=== PATIENT | female | born 1945 | race Caucasian/White ===

== ENCOUNTER 2021-01-03 19:55 | Emergency (ER) | payer MEDICARE ==
[~2021-01-03] VITALS: Ht 165.1 cm; Wt 78.2 kg
--- NOTE | 2021-01-03 20:47 | PHYS DOC ---
Past History Past Medical History: COPD, Other Additional Past Medical Histor: 3 vessel bybass Past Surgical History: Other Additional Past Surgical Histo: left hip fx, left knee fx Alcohol Use: None General Adult EDM: Chief Complaint: MECHANICAL FALL HPI: HPI: ".. I got diarrhea... and I was in the garage.. I was rushing back in to the house and .. I tripped and fell..."... hips and lower back are sore..." Patient is a 75 year old female who presents with above hx and complaints of recent episodes of diarrhea. Patient denies any intake bad food. No recent travel. No specific ill contacts. Patient has past medical history of COPD, hypertension, diabetes, arthritis, and gait disorder. Patient normally walks with a walker. Patient states she just tripped and fell. No recent history of antibiotic usage. No history of specific ill contacts. No history immunosuppression. Patient had diarrhea for last couple days. Patient normally follows with Dr. Preciado. Review of Systems: Review of Systems: Constitutional: Denies fever or chills Eyes: Denies change in visual acuity HENT: Denies nasal congestion or sore throat Respiratory: Denies cough or shortness of breath Cardiovascular: Denies chest pain or edema GI: Denies abdominal pain, nausea, vomiting, bloody stools. Complains of diarrhea : Denies dysuria Musculoskeletal: Complains of Heparin lower back pain Integument: Denies rash Neurologic: Denies headache, focal weakness or sensory changes Endocrine: Denies polyuria or polydipsia Lymphatic: Denies swollen glands Psychiatric: Denies depression or anxiety Family History: Family History: Noncontributory Current Medications: Current Meds: See nursing for home meds Allergies: Allergies: Allergies Coded Allergies Type Severity Reaction Last Updated Verified levofloxacin Allergy Unknown 01/03/21 Yes morphine Allergy Unknown 01/03/21 Yes Physical Exam: PE: Constitutional: Mild distress, non-toxic appearance. [] HENT: Normocephalic, atraumatic, bilateral external ears normal, oropharynx moist, no oral exudates, nose normal. [] Eyes: PERRLA, EOMI, conjunctiva normal, no discharge. [] Neck: Normal range of motion, no tenderness, supple, no stridor. [] Cardiovascular:Heart rate regular rhythm, no murmur [] Lungs & Thorax: Bilateral breath sounds clear to auscultation [] Abdomen: Bowel sounds hyperactive, soft, no tenderness, no masses, no pulsatile masses. Obese. Has had a diarrhea Skin: Warm, dry, no erythema, no rash. [] Back: Low back pain tenderness, no CVA tenderness. [] Extremities: No tenderness, no cyanosis, no clubbing, ROM intact, no edema. Bilateral hip tenderness. Arthritic changes. Neurologic: Alert and oriented X 3, normal motor function, normal sensory function, no focal deficits noted. [] Psychologic: Affect anxious, judgement normal, mood normal. [] Current Patient Data: Vital Signs: Vital Signs Date Time Temp Pulse Resp B/P (MAP) Pulse Ox O2 Delivery O2 Flow Rate FiO2 01/03/21 19:55 98.1 80 18 93/61 (72) 92 Room Air EKG: EKG: [] Radiology/Procedures: Radiology/Procedures: [][address] [address] IMAGING REPORT Signed PATIENT: BRAN SIMON ACCOUNT: [id number] : 1945 LOCATION: ER AGE: 75 SEX: F EXAM STATUS: REG ER ORD. PHYSICIAN: SADIA HENDERSON MD REASON: Fall, weakness, abdomen distention, pain PROCEDURE: CT ABDOMEN PELVIS WO CONTRAST Exam: CT of abdomen and pelvis without contrast INDICATION: Fall, weakness, abdominal distention, pain TECHNIQUE: Sequential axial images through the abdomen and pelvis obtained without IV contrast. Sagittal and coronal reformatted images were reconstructed from the axial data and reviewed. Comparisons: None FINDINGS: Heart size is normal. No pericardial effusion. Strandy opacities at dependent portion lungs likely representing atelectasis. Evaluation of the solid organs is limited secondary to noncontrast technique. Liver, spleen, and adrenals are unremarkable. Gallbladder is absent. Fat stranding is seen surrounding the pancreatic tail. No peripancreatic fluid collection. No perinephric inflammation or hydronephrosis. No renal or ureteral calculi are identified. Bladder is distended and appears thin-walled. Uterus is absent. No abnormal adnexal mass. Postoperative changes noted at the stomach. Diverticulosis is noted at the sigmoid colon without evidence of acute diverticulitis. Remainder large and small bowel are unremarkable. Appendix is is not identified. No free intra- abdominal air or fluid. No obstruction. Abdominal aorta has a normal course and caliber. No enlarged intra-abdominal lymph nodes are identified. No suspicious osseous lesions or acute fractures. IMPRESSION: 1. Mild stranding surrounding the pancreatic tail. Correlate with lipase for acute pancreatitis. 2. Postoperative changes at the stomach, which is adjacent to this area of inflammation. Superimposed infectious or inflammatory process is difficult to exclude. Exposure: One or more of the following in the visualized dose reduction techniques were utilized for this examination: 1. Automated exposure control 2. Adjustment of the MA and/or KV according to patient size 3. Use of iterative of reconstructive technique Electronically signed by: Bhumi Medrano MD (01/03/2021 9:27 PM) [facility] DICTATED AND SIGNED BY: BHUMI MEDRANO MD DATE: 01/03/212121 CC: SADIA HENDERSON MD; PCP,UNKNOWN ~MTH0 0 Heart Score: C/O Chest Pain: N/A Risk Factors: Risk Factors: DM, Current or recent (<one month) smoker, HTN, HLP, family history of CAD, obesity. Risk Scores: Score 0 - 3: 2.5% MACE over next 6 weeks - Discharge Home Score 4 - 6: 20.3% MACE over next 6 weeks - Admit for Clinical Observation Score 7 - 10: 72.7% MACE over next 6 weeks - Early Invasive Strategies Course & Med Decision Making: Course & Med Decision Making Pertinent Labs and Imaging studies reviewed. (See chart for details) Patient Tylenol and ibuprofen for discomfort. May take Vicoprofen up to 4 times a day for marked pain. Consider taking Pepto-Bismol for diarrhea. Follow-up primary care. Push fluids. Ice packs as needed. Follow-up stool cultures. Recommend patient be on a clear fluid diet for the next 2 days. No solids. No milk products. Allow bowel rest. Return if any concerns. Impression: 1. Fall 2. Contusions 3. Diarrhea 4. Mild Anemia Hgb 11.9 [] Dragabby Disclaimer: Dragabby Disclaimer: This electronic medical record was generated, in whole or in part, using a voice recognition dictation system. Departure Departure: Scripts Hydrocodone/Ibuprofen (HYDROCODONE-IBUPROFEN 7.5-200 ) 1 Each Tablet 1 TAB PO PRN Q6HRS PRN for PAIN, #30 TAB 0 Refills Prov: SADIA HENDERSON MD 01/03/21 Belén Disclaimer This chart was dictated in whole or in part using Voice Recognition software in a busy, high-work load, and often noisy Emergency Department environment. It may contain unintended and wholly unrecognized errors or omissions. SADIA HENDERSON MD Jan 03, 2021 20:47
[2021-01-03] MEDS ORDERED: oxyCODONE/APAP 5/325 1 TAB TABLET PO ONE (21:00)
[2021-01-03] MEDS ORDERED: IV RINGERS SOLUTION,LACTATED 1,000 ML IV ONE (21:00)
[2021-01-03 21:17] LABS: HEMATOCRIT 37.8 % (36.0-47.0); HEMOGLOBIN 11.9 g/dL (12.0-15.5); RED BLOOD COUNT 4.3 x10^6/uL (3.50-5.40); RED CELL DISTRIBUTION WIDTH 16.9 % (11.5-14.5); WHITE BLOOD COUNT 9.6 x10^3/uL (4.0-11.0)
[2021-01-03 21:25] LABS: CALCIUM 8.4 mg/dL (8.5-10.1); CREATININE 0.9 mg/dL (0.6-1.0)
--- NOTE | 2021-01-03 21:29 | RAD ---
Exam: CT of abdomen and pelvis without contrast INDICATION: Fall, weakness, abdominal distention, pain TECHNIQUE: Sequential axial images through the abdomen and pelvis obtained without IV contrast. Sagit sharan and coronal reformatted images were reconstructed from the axial data and reviewed. Comparisons: None FINDINGS: Heart size is normal. No pericardial effusion. Strandy opacities at dependent portion lungs likely re presenting atelectasis. Evaluation of the solid organs is limited secondary to noncontrast technique. Liver, spleen, and adrenals are unremarkable. Gallbladder is absent. Fat stranding is seen surrounding the pancreatic tail. No peripancreatic fluid collection. No perinephric inflammation or hydronephrosis. No renal or ureteral calculi are identified. Bladder is distended and appears thin-walled. Uterus is absent. No abnormal adnexal mass. Postoperative changes noted at the stomach. Diverticulosis is noted at the sigmoid colon without evid ence of acute diverticulitis. Remainder large and small bowel are unremarkable. Appendix is is not id entified. No free intra-abdominal air or fluid. No obstruction. Abdominal aorta has a normal course and caliber. No enlarged intra-abdominal lymph nodes are identified. No suspicious osseous lesions or acute fractures. IMPRESSION: 1. Mild stranding surrounding the pancreatic tail. Correlate with lipase for acute pancreatitis. 2. Postoperative changes at the stomach, which is adjacent to this area of inflammation. Superimpose d infectious or inflammatory process is difficult to exclude. Exposure: One or more of the following in the visualized dose reduction techniques were utilized for this examination: 1. Automated exposure control 2. Adjustment of the MA and/or KV according to patient size 3. Use of iterative of reconstructive technique Electronically signed by: Bhumi Scott MD (01/03/2021 9:27 PM) [facility]
[2021-01-03 22:19] LABS: AMYLASE 35 U/L (25-115); LIPASE 41 U/L (73-393)
[2021-01-03] MEDS ORDERED: HYDR-1179 PO (23:11)
[2021-01-03 23:12] LABS: FECAL OB PT NEGATIVE (NEG)
[2021-01-03 23:14] VITALS: BP 110/59
== END 2021-01-03 23:50 | disposition home or self-care (01) ==
LOC: ER 19:55
DX: S30.0XXA Contusion of lower back and pelvis, initial encounter (principal); R19.7 Diarrhea, unspecified; J44.9 Chronic obstructive pulmonary disease, unspecified; Z88.1 Allergy status to other antibiotic agents; Z88.5 Allergy status to narcotic agent; W01.0XXA Fall on same level from slipping, tripping and stumbling without subsequent striking against object, initial encounter; Y93.89 Activity, other specified; Y92.89 Other specified places as the place of occurrence of the external cause; Y99.8 Other external cause status
CPT/HCPCS: 36415; 74176; 80048; 82150; 82274; 83690; 85027; 87493; 96360; 96361; 99284; J7120

== ENCOUNTER 2021-06-18 16:21 | Inpatient (IN) | payer MEDICARE ==
[~2021-06-18] VITALS: Ht 162.6 cm; Wt 73.5 kg
[~2021-06-18 16:21] MED LIST: HYDR-1179 PO
[2021-06-18] MEDS ORDERED: IOHEXOL 300 MG/ML 75 ML VIAL. IV ONE (17:00)
--- NOTE | 2021-06-18 17:00 | EKG ---
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
--- NOTE | 2021-06-18 17:02 | PHYS DOC ---
Past History Past Medical History: Anemia, COPD, Diabetes, GERD, High Cholesterol, Other Additional Past Medical Histor: 3 vessel bypass, restless leg syndrome, (CARROLL EMERSON DO) Past Surgical History: Other Additional Past Surgical Histo: left hip fx, left knee fx (CARROLL EMERSON DO) Alcohol Use: None (CARROLL EMERSON DO) General Adult EDM: Chief Complaint: CHEST PAIN HPI: HPI: 76-year-old female presents with 2-day history of chest pain and abdominal pain. She states that she feels like she is having intermittent chest cramping se nsation of moderate intensity. Her left chest is tender to palpation. She also complains of generalized pain in her abdomen. She has not wanted to eat or drink for the last few days. Her son who accompanies her states that she seems much more tired than usual. She has been taking her medications as prescribed. She does have a history of gastric ulcer verified by EGD. Her GI doctor has her on treatments and her most recent EGD showed improvement. Patient denies any bleeding. Denies fever or chills. (CARROLL EMERSON DO) Review of Systems: Review of Systems: Constitutional: Denies fever or chills Eyes: Denies change in visual acuity HENT: Denies nasal congestion or sore throat Respiratory: Denies cough or shortness of breath Cardiovascular: Chest pain GI: Generalized abdominal pain, nausea. Denies vomiting, bloody stools or diarrhea : Denies dysuria Musculoskeletal: Denies back pain or joint pain Integument: Denies rash Neurologic: Denies headache, focal weakness or sensory changes Endocrine: Denies polyuria or polydipsia Lymphatic: Denies swollen glands Psychiatric: Denies depression or anxiety (CARROLL EMERSON DO) Allergies: Allergies: Allergies Coded Allergies Type Severity Reaction Last Updated Verified levofloxacin Allergy Unknown 01/03/21 Yes morphine Allergy Unknown 01/03/21 Yes (CARROLL EMERSON DO) Physical Exam: PE: Constitutional: Well developed, well nourished, no acute distress, non-toxic appearance. [] HENT: Normocephalic, atraumatic, bilateral external ears normal, oropharynx moist, no oral exudates, nose normal. [] Eyes: PERRLA, EOMI, conjunctiva normal, no discharge. [] Neck: Normal range of motion, no tenderness, supple, no stridor. [] Cardiovascular:Heart rate regular rhythm, no murmur [] Lungs & Thorax: Bilateral breath sounds clear to auscultation [] Abdomen: Bowel sounds normal, soft, no tenderness, no masses, no pulsatile masses. [] Skin: Warm, dry, no erythema, no rash. [] Back: No tenderness, no CVA tenderness. [] Extremities: No tenderness, no cyanosis, no clubbing, ROM intact, no edema. [] Neurologic: Alert and oriented X 3, normal motor function, normal sensory function, no focal deficits noted. [] Psychologic: Affect normal, judgement normal, mood normal. [] (CARROLL EMERSON DO) Current Patient Data: Labs: Laboratory Tests Test 06/18/21 17:10 06/18/21 19:07 White Blood Count 10.8 x10^3/uL Red Blood Count 5.30 x10^6/uL Hemoglobin 15.9 g/dL Hematocrit 48.8 % Mean Corpuscular Volume 92 fL Mean Corpuscular Hemoglobin 30 pg Mean Corpuscular Hemoglobin Concent 33 g/dL Red Cell Distribution Width 17.5 % Platelet Count 174 x10^3/uL Neutrophils (%) (Auto) 72 % Lymphocytes (%) (Auto) 18 % Monocytes (%) (Auto) 9 % Eosinophils (%) (Auto) 1 % Basophils (%) (Auto) 1 % Neutrophils # (Auto) 7.7 x10^3uL Lymphocytes # (Auto) 1.9 x10^3/uL Monocytes # (Auto) 0.9 x10^3/uL Eosinophils # (Auto) 0.1 x10^3/uL Basophils # (Auto) 0.1 x10^3/uL Sodium Level 135 mmol/L Potassium Level 2.8 mmol/L Chloride Level 97 mmol/L Carbon Dioxide Level 31 mmol/L Anion Gap 7 Blood Urea Nitrogen 18 mg/dL Creatinine 0.5 mg/dL Estimated GFR (Cockcroft-Gault) 120.0 BUN/Creatinine Ratio 36 Glucose Level 117 mg/dL Calcium Level 9.4 mg/dL Total Bilirubin 0.8 mg/dL Aspartate Amino Transf (AST/SGOT) 15 U/L Alanine Aminotransferase (ALT/SGPT) 18 U/L Alkaline Phosphatase 102 U/L Troponin I Quantitative < 0.017 ng/mL CP-Ehh-O-Type Natriuretic Peptide 756 pg/mL Total Protein 7.5 g/dL Albumin 3.4 g/dL Albumin/Globulin Ratio 0.8 Lipase 31 U/L Urine Collection Type Unknown Urine Color Yellow Urine Clarity Clear Urine pH 7.0 Urine Specific [place] 1.010 Urine Protein Neg Urine Glucose (UA) Neg mg/dL Urine Ketones (Stick) Neg mg/dL Urine Blood Trace Urine Nitrite Neg Urine Bilirubin Neg Urine Urobilinogen Dipstick 1.0 mg/dL Urine Leukocyte Esterase Neg Urine RBC 1-2 /HPF Urine WBC 1-4 /HPF Urine Squamous Epithelial Cells Occ /LPF Urine Bacteria 0 /HPF Current Medications Medications (Trade) Dose Ordered Sig/Yane Route PRN Reason Start Time Stop Time Status Last Admin Dose Admin Iohexol (Omnipaque 300 Mg/ml) 75 ml 1X ONCE IV 06/18/21 17:00 06/18/21 17:13 DC 06/18/21 19:29 Potassium Chloride (Klor-Con) 40 meq 1X ONCE PO 06/18/21 19:30 06/18/21 19:38 DC 06/18/21 21:25 (YOANNA VALENCIA MD) EKG: EKG: Sinus rhythm, rate 86, leftward axis, no ST elevation or depression. [] (CARROLL EMERSON DO) Radiology/Procedures: Radiology/Procedures: [] Impressions: Site ID: [id number] EXAMINATION: XR CHEST 1V. HISTORY: 76 years Female Reason: CHEST ORLIN, COUGH COMPARISON: None. Findings: The heart size is enlarged. There is a interstitial thickening which could relate to vascular congestion. No focal airspace consolidation. The sternotomy wires and evidence of the cardiac valve replacement is seen. There is no effusion or pneumothorax. The mediastinum and neal appear unremarkable. Minimally displaced the lateral the left third and fourth the rib fractures are noted probably acute or subacute. Impression: 1. Cardiomegaly with interstitial thickening could relate to vascular congestion. 2.. Minimally displaced lateral left third and fourth rib fractures, probably acute to subacute. Electronically signed by: Darrian Ash MD (06/18/2021 5:23 PM) [id number] DICTATED AND SIGNED BY: DARRIAN ASH MD DATE: 06/18/21 1720 CC: CARROLL EMERSON DO; PAUL TAVAREZ MD ~MTH0 0 (CARROLL EMERSNO DO) Radiology/Procedures: PATIENT: BRAN SIMON ACCOUNT: [id number] : 1945 LOCATION: ER AGE: 76 SEX: F EXAM STATUS: REG ER ORD. PHYSICIAN: CARROLL EMERSON DO REASON: upper abdominal pain, OMNI 300, 75ml PROCEDURE: CT ABD PELV W/ IV CONTRST ONLY Examination: CT of the abdomen pelvis with IV contrast HISTORY: History of upper abdominal pain COMPARISON: 01/03/2021 TECHNIQUE: Axial CT images of the abdomen pelvis were performed with IV contrast. Coronal and sagittal reformats are performed Exposure: One or more of the following individualized dose reduction techniques were utilized for this examination: 1. Automated exposure control 2. Adjustment of the mA and/or kV according to patient size 3. Use of iterative reconstruction technique. FINDINGS: Minimal bibasilar lung atelectasis. No evidence of free air identified in the abdomen. The visualized liver, adrenals grossly appears unremarkable. Few calcified granulomas identified in the spleen. Surgical changes identified in the stomach. Mild enhancement of the distal stomach wall could be mild gastritis. Mild prominent intrahepatic bile ducts and common bile duct likely postcholecystectomy changes. The visualized pancreas grossly appears unremarkable. The small bowel is nondilated. Feces and gas noted in the colon. There is a bladder is mildly distended. The bilateral kidneys enhance symmetrically. Cystic structure identified in the left kidney with the largest measuring 2 cm likely cyst. Moderate aortic atherosclerosis. Mild aneurysmal change infrarenal abdominal aorta. Left hip hardware identified. Moderate degenerative changes thoracolumbar spine. IMPRESSION: 1. Mild enhancement of the distal stomach wall could be mild gastritis. 2. Mild aneurysmal change infrarenal abdominal aorta. Electronically signed by: Sourav Chacko MD (06/18/2021 7:40 PM) [id number] (YOANNA VALENCIA MD) Heart Score: C/O Chest Pain: Yes HEART Score for Chest Pain: HEART Score for Chest Pain Response (Comments) Value History Slighlty/Non-Suspicious 0 ECG Nonspecific Repolarizatio 1 Age > 65 2 Risk Factors 1 or 2 Risk Factors 1 Total 4 Risk Factors: Risk Factors: DM, Current or recent (<one month) smoker, HTN, HLP, family history of CAD, obesity. Risk Scores: Score 0 - 3: 2.5% MACE over next 6 weeks - Discharge Home Score 4 - 6: 20.3% MACE over next 6 weeks - Admit for Clinical Observation Score 7 - 10: 72.7% MACE over next 6 weeks - Early Invasive Strategies (CARROLL EMERSON DO) Course & Med Decision Making: Course & Med Decision Making Pertinent Labs and Imaging studies reviewed. (See chart for details) The patient's chest x-ray shows cardiomegaly, vascular congestion and fractures of the third and fourth ribs on the left. See official read for details. EKG shows a prolonged [place], but no acute ST elevations. Labs are pending. I am signing the patient out to repack room worker 1800. [] (CARROLL EMERSON DO) Course & Med Decision Making Patient was signed out to me at 1800 p.m. pending laboratory studies and CT scan. She had presented with complaint of chest pain with previous history of fall. She also felt malaise and increasingly fatigued. Laboratory investigation revealed significantly low potassium of 2.8. She was given potassium chloride [address] scan of the abdomen and pelvis did not reveal any significant acute abnormalities. X-ray had revealed mild cardiomegaly with interstitial thickening possible mild vascular congestion and left third and fourth rib fractures. Patient does have history of heart failure but does not feel like she is fluid overloaded. She has no leg edema or significant shortness of breath. Her troponin is negative. An EKG done prior to my arrival did not show any acute ischemia. Because of pain management as well as significant hypokalemia, patient will be admitted to the hospital. I spoke with Dr. Sanders, hospitalist will admit patient for further care. I have also spoken with family member and the patient and patient is agreeable with the plan of care. Final impression 1. Acute hypokalemia 2. Left rib fractures 3. Chest pain Disposition: Admit to hospital telemetry. (YOANNA VALENCIA MD) Belén Disclaimer: Belén Disclaimer: This electronic medical record was generated, in whole or in part, using a voice recognition dictation system. (CARROLL EMERSON DO) Departure Departure: Impression: Primary Impression: Left rib fracture Qualified Codes: S22.42XA - Multiple fractures of ribs, left side, initial encounter for closed fracture Referrals: PAUL TAVAREZ MD (PCP) CARROLL EMERSON DO Jun 18, 2021 17:02 YOANNA VALENCIA MD Jun 18, 2021 21:35
--- NOTE | 2021-06-18 17:26 | RAD ---
Site ID: [id number] EXAMINATION: XR CHEST 1V. HISTORY: 76 years Female Reason: CHEST ORLIN, COUGH COMPARISON: None. Findings: The heart size is enlarged. There is a interstitial thickening which could relate to vascul ar congestion. No focal airspace consolidation. The sternotomy wires and evidence of the cardiac valv e replacement is seen. There is no effusion or pneumothorax. The mediastinum and neal appear unremarkable. Minimally displaced the lateral the left third and four th the rib fractures are noted probably acute or subacute. Impression: 1. Cardiomegaly with interstitial thickening could relate to vascular congestion. 2.. Minimally displaced lateral left third and fourth rib fractures, probably acute to subacute. Electronically signed by: Lupillo Ash MD (06/18/2021 5:23 PM) [id number]
[2021-06-18 18:28] LABS: BASO # 0.1 x10^3/uL (0.0-0.2); BASO % 1 % (0-3); EOS # 0.1 x10^3/uL (0.0-0.7); EOS % 1 % (0-3); HEMATOCRIT 48.8 % (36.0-47.0); HEMOGLOBIN 15.9 g/dL (12.0-15.5); LYMPH # 1.9 x10^3/uL (1.0-4.8); LYMPH % 18 % (24-48); MEAN CORPUSCULAR HEMOGLOBIN 30 pg (25-35); MEAN CORPUSCULAR HGB CONC 33 g/dL (31-37); MEAN CORPUSCULAR VOLUME 92 fL (79-100); MONO # 0.9 x10^3/uL (0.0-1.1); MONO % 9 % (0-9); NEUT # 7.7 x10^3uL (1.8-7.7); NEUT % 72 % (31-73); PLATELET COUNT 174 x10^3/uL (140-400); RED CELL DISTRIBUTION WIDTH 17.5 % (11.5-14.5); WHITE BLOOD COUNT 10.8 x10^3/uL (4.0-11.0)
[2021-06-18 18:40] LABS: ALBUMIN 3.4 g/dL (3.4-5.0); ALBUMIN/GLOBULIN RATIO 0.8 (1.0-1.7); CALCIUM 9.4 mg/dL (8.5-10.1); CREATININE 0.5 mg/dL (0.6-1.0); TOTAL BILIRUBIN 0.8 mg/dL (0.2-1.0); TOTAL PROTEIN 7.5 g/dL (6.4-8.2)
[2021-06-18 18:58] LABS: POTASSIUM 2.8 mmol/L (3.5-5.1)
[2021-06-18] MEDS ORDERED: POTASSIUM CHLORIDE 20 MEQ TABLET.ER. PO ONE (19:30)
--- NOTE | 2021-06-18 19:43 | RAD ---
Examination: CT of the abdomen pelvis with IV contrast HISTORY: History of upper abdominal pain COMPARISON: 01/03/2021 TECHNIQUE: Axial CT images of the abdomen pelvis were performed with IV contrast. Coronal and sagitta l reformats are performed Exposure: One or more of the following individualized dose reduction techniques were utilized for thi s examination: 1. Automated exposure control 2. Adjustment of the mA and/or kV according to patient size 3. Use of iterative reconstruction technique. FINDINGS: Minimal bibasilar lung atelectasis. No evidence of free air identified in the abdomen. The visualized liver, adrenals grossly appears unremarkable. Few calcified granulomas identified in the spleen. Surgical changes identified in the stomach. Mild enhancement of the distal stomach wall could be mild gastritis. Mild prominent intrahepatic bile ducts and common bile duct likely postcholecystectomy ch anges. The visualized pancreas grossly appears unremarkable. The small bowel is nondilated. Feces and gas noted in the colon. There is a bladder is mildly distended. The bilateral kidneys enhance symmetrically. Cystic structure identified in the left kidney with the largest measuring 2 cm likely cyst. Moderate aortic atherosclerosis. Mild aneurysmal change infrarenal abdominal aorta. Left hip hardware identified. Moderate degenerativ e changes thoracolumbar spine. IMPRESSION: 1. Mild enhancement of the distal stomach wall could be mild gastritis. 2. Mild aneurysmal change infrarenal abdominal aorta. Electronically signed by: Sourav Chacko MD (06/18/2021 7:40 PM) [id number]
[2021-06-18 19:59] LABS: BILIRUBIN,URINE NEG (NEG); CLARITY,URINE CLEAR; COLOR,URINE YELLOW; GLUCOSE,URINE NEG (NEG)
[2021-06-18 20:00] LABS: BACTERIA,URINE 0 /HPF (0-FEW); NITRITE,URINE NEG (NEG); SQUAMOUS EPITHELIAL CELL,UR OCC /LPF
[2021-06-18 23:28] VITALS: BP 128/89
--- NOTE | 2021-06-18 23:30 | NUR ---
The patient, BRAN SIMON, 76 y/o, F admitted by PAUL VILLAR MD, was given written information regarding hospital policies, unit procedures and contact persons. Valuables were checked and vitals obtained. Pt is A&OX4 able to express her own concerns. Pt can ambulate with walker to toilet. Chronic use of 02. Pt wears 3L NC at home and currently at hospital. Pt is currently resting in bed. Will continue to monitor.
[2021-06-19 06:00] VITALS: BP 138/83
[2021-06-19 06:57] LABS: CALCIUM 9.6 mg/dL (8.5-10.1); CREATININE 0.5 mg/dL (0.6-1.0); POTASSIUM 3.5 mmol/L (3.5-5.1)
[2021-06-19] MEDS ORDERED: OMEP20CA16 PO (09:19)
[2021-06-19] MEDS ORDERED: AMIT25TA PO (09:25)
[2021-06-19] MEDS ORDERED: FURO40TA4 PO (09:26)
[2021-06-19] MEDS ORDERED: FERR325T14 PO (09:30)
--- NOTE | 2021-06-19 09:56 | HP ---
ADMIT DATE: 06/19/2021 ATTENDING PHYSICIAN: Dr. Sanders. CHIEF COMPLAINT: Left-sided chest pain. HISTORY OF PRESENT ILLNESS: The patient is a 76-year-old female admitted through the ED with a 2-day history of chest and abdominal pain. She has some cramping. She had fallen several days ago. She does not remember how that happened. She stated she did not lose consciousness. She has multiple other medical issues. She had a workup in the ED, it was not coronary. Her enzymes were negative. EKG and chest x-ray were nondiagnostic. She did, however, have evidence of 2 acute fracture of the left third and fourth lateral ribs. There is no displacement. There is no pneumothorax. It hurts when she takes a deep breath. She is splinting as a result became hypoxemic, supplemental oxygen was added. She is admitted then with acute chest pain secondary to fall. She has osteoporosis. She had a recent fall, which correlates the side of the pain. PAST MEDICAL HISTORY: Significant for COPD. She continues to smoke. She has underlying depression with anxiety. She has anemia of chronic disease, gastroesophageal reflux disease, hyperlipidemia, coronary artery disease with 3-vessel bypass, exact details are sketchy whether she has had followup. She also had restless leg syndrome. PAST SURGICAL HISTORY: Includes surgery on the left hip fracture, left knee fracture, hysterectomy, and appendectomy. Exact diagnosis is unclear. ALLERGIES: SHE HAS ALLERGIES TO HYDROMORPHONE, LEVAQUIN AND MORPHINE. CURRENT MEDICATIONS: Include hydrocodone, ibuprofen. I do not have any other prescription meds. She has recently moved here from [place], [place] to be closer to her son. She does not have a local primary care physician. SOCIAL HISTORY: She is a smoker. She does not use any alcohol. FAMILY HISTORY: Mom at age 65 of heart disease. Father at age 70, also of heart disease. REVIEW OF SYSTEMS: Significant for generalized weakness and debilitation, dyspnea with minimal exertion. No palpitations. No COVID exposure. All other systems were reviewed and turned to be negative. PHYSICAL EXAMINATION: GENERAL: When I saw her, this is a female who was fairly alert. She looks older than her stated age. VITAL SIGNS: Initial vital signs showed a blood pressure of 138/83, pulse is 80 and regular. She was afebrile, oxygen saturation 96% on 3 liters by nasal cannula. HEENT: Head is without trauma. Pupils are reactive. Sclerae nonicteric. Oropharynx clear. NECK: Supple. No stridor. LUNGS: Shallow respirations, due to splinting. CARDIOVASCULAR: Showed regular heart tones. No gallops. ABDOMEN: Obese, protuberant. No rebound tenderness. No masses. EXTREMITIES: Without edema. NEUROLOGIC: Finally, focally intact. Speech is fluent. 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 PERTINENT LABORATORY STUDIES: Admission hemoglobin is 15.9 g/dL with a white count of 10,800. Electrolytes within normal range. Creatinine 0.5 mg percent. The first 3 sets of cardiac enzymes are negative for coronary ischemia. IMAGING STUDIES: Acute left third and fourth lateral rib fractures. CT of the abdomen and pelvis showed aortic arterial sclerosis, mild aneurysmal changes, left hip hardware. No acute obstruction identified. ASSESSMENT: 1. A 76-year-old female with a fall and acute left sided rib fractures, third and fourth left rib. 2. Chronic obstructive pulmonary disease due to continued tobacco addiction. 3. History of coronary artery disease. 4. Underlying depression with anxiety. 5. Generalized debilitation. 6. Osteoporosis. PLAN: 1. Admit to the inpatient unit. 2. P.r.n. pain meds. 3. Reassurance that her symptoms are noncardiac. 4. We will try to ascertain whether she is able to return home to her son or whether she needs a higher level of care. HARRISON MITCHELL: HARRISON/eliane TID: [id number]
[2021-06-19 10:14] VITALS: BP 122/72
[2021-06-19] MEDS: PANTOPRAZOLE 40 MG TABLET. PO SCH (11:03)
[2021-06-19] MEDS: FUROSEMIDE 40 MG TABLET PO SCH (14:08)
[2021-06-19 15:02] VITALS: BP 139/74
[2021-06-19 21:49] VITALS: BP 121/71
[2021-06-19 23:41] VITALS: BP 117/78
[2021-06-20 06:33] VITALS: BP 131/82
[2021-06-20] MEDS: PANTOPRAZOLE 40 MG TABLET. PO SCH (08:42)
[2021-06-20] MEDS: FUROSEMIDE 40 MG TABLET PO SCH ×2 (08:43→14:27)
--- NOTE | 2021-06-20 08:59 | NUR ---
NURSING NOTE CONSULT CONSULT CARDIOLOGY CALLED TO APRN. MAYITO BUSCH RN.
--- NOTE | 2021-06-20 08:59 | NUR ---
NURSING NOTE PAIN UPON ASSESSMENT THIS AM, PT STATED HER PAIN WAS HIGH, MOANING, STATING "JUST LEAVE ME ALONE". SPOKE WITH DR EMERSON, ORDER FOR PRN PAIN MEDICATION OBTAINED. ORDER FOR CARDIOLOGY CONSULT WELL. PER ASPHALT PAVER RN, PT HAD CONCERNS ABOUT HER FALL 2 WEEKS AGO STATING THEY DID NOT DO IMAGING OF HER HEAD AND SHE HAS BEEN HAVING "STARRING OFF INTO NOWHERE" EPISODES AND HE WAS CONCERNED. CT HEAD ORDERED PER DR EMERSON. ZENAIDA EDMOND.
[2021-06-20 09:25] LABS: CALCIUM 9.1 mg/dL (8.5-10.1); CREATININE 0.5 mg/dL (0.6-1.0); POTASSIUM 3.1 mmol/L (3.5-5.1)
[2021-06-20 09:26] LABS: BASO # 0.1 x10^3/uL (0.0-0.2); BASO % 1 % (0-3); EOS # 0.2 x10^3/uL (0.0-0.7); EOS % 2 % (0-3); HEMATOCRIT 44.8 % (36.0-47.0); HEMOGLOBIN 14.5 g/dL (12.0-15.5); LYMPH # 2.2 x10^3/uL (1.0-4.8); LYMPH % 25 % (24-48); MEAN CORPUSCULAR HEMOGLOBIN 30 pg (25-35); MEAN CORPUSCULAR HGB CONC 32 g/dL (31-37); MEAN CORPUSCULAR VOLUME 92 fL (79-100); MONO # 0.9 x10^3/uL (0.0-1.1); MONO % 10 % (0-9); NEUT # 5.7 x10^3uL (1.8-7.7); NEUT % 62 % (31-73); PLATELET COUNT 173 x10^3/uL (140-400); RED BLOOD COUNT 4.88 x10^6/uL (3.50-5.40); WHITE BLOOD COUNT 9.1 x10^3/uL (4.0-11.0)
[2021-06-20] MEDS ORDERED: POTASSIUM CHLORIDE 20 MEQ TABLET.ER. PO ONE (10:00)
--- NOTE | 2021-06-20 10:03 | PDOC2 ---
JO-ANN JOHNSON PAYROLL DIRECTOR 06/20/21 1003: CARDIAC CONSULT DATE OF CONSULT DOS: DATE: 06/20/21 TIME: 09:59 REASON FOR CONSULT Reason for Consult tachycardia BBB REFERRING PHYSICIAN Referring Physician Dr. Ramirez SOURCE Source: Chart review, Patient HPI History of Present Illness This is a 76 yo female who presented secondary to chest and abdominal pain. Patient does reports recent fall. CXR noted with minimally displaced lateral left third and fourth rib fractures, probably acute to subacute. Does complain of left sided chest pain that is worse upon mild palpation. NO dizziness, diaphoresis, palpations, or nausea/vomiting. EKG noted with BBB, which prompted our consult. Does have a history of CAD s/p CABG. PAST MEDICAL HISTORY Cardiovascular: CAD, CHF, HTN, aortic stenosis (bioprosthetic aortic valve), Other (AAA) GI: GERD Heme/Onc: Anemia NOS Endocrine: Diabetes PAST SURGICAL HISTORY Past Surgical History: CABG, Hysterectomy FAMILY HISTORY Family History: Family History Unknown SOCIAL HISTORY Smoke: No ALCOHOL: none Drugs: None Lives: with Family CURRENT MEDICATIONS Current Medications Current Medications Iohexol (Omnipaque 300 Mg/ml) 75 ml 1X ONCE IV Last administered on 06/18/21at 19:29; Start 06/18/21 at 17:00; Stop 06/18/21 at 17:13; Status DC Potassium Chloride (Klor-Con) 40 meq 1X ONCE PO Last administered on 06/18/21at 21:25; Start 06/18/21 at 19:30; Stop 06/18/21 at 19:38; Status DC Furosemide (Lasix) 40 mg BID92 PO Last administered on 06/20/21at 08:43; Start 06/19/21 at 14:00 Pantoprazole Sodium (Protonix) 40 mg DAILYAC PO Last administered on 06/20/21at 08:42; Start 06/19/21 at 11:00 Fentanyl Citrate (Fentanyl 2ml Vial) 50 mcg PRN Q3HRS PRN IVP PAIN; Start 06/20/21 at 09:00 Potassium Chloride (Klor-Con) 40 meq 1X ONCE PO ; Start 06/20/21 at 10:00; St op 06/20/21 at 10:01 Active Scripts Active Hydrocodone-Ibuprofen 7.5-200 (Hydrocodone/Ibuprofen) 1 Each Tablet 1 Tab PO PRN Q6HRS PRN Reported Ferrous Sulfate 325 Mg Tablet 325 Mg PO BID Furosemide 40 Mg Tablet 40 Mg PO BID Amitriptyline Hcl 25 Mg Tablet 50 Mg PO HS Omeprazole 20 Mg Capsule.dr 20 Mg PO BID ALLERGIES Allergies: Coded Allergies: hydromorphone (Verified Allergy, Unknown, 06/18/21) levofloxacin (Verified Allergy, Unknown, 01/03/21) morphine (Verified Allergy, Unknown, 01/03/21) ROS Review of Systems 14 point ROS conducted with pertinent positives noted above in HPI PHYSICAL EXAM General: Alert, Cooperative, No acute distress HEENT: Atraumatic, Mucous membr. moist/pink Lungs: Other (left chest tenderness upon palpation ) Heart: Regular rate Abdomen: Soft, No tenderness Extremities: No edema, Normal pulses Skin: No breakdown Neuro: Normal speech, Sensation intact Psych/Mental Status: Mood NL MUSCULOSKELETAL: Osteoarthritic changes both hands VITALS Vital Signs Vital Signs Date Time Temp Pulse Resp B/P (MAP) Pulse Ox O2 Delivery O2 Flow Rate FiO2 06/20/21 08:30 Nasal Cannula 3.0 06/20/21 06:33 98.8 85 18 131/82 (98) 92 LABS LABS Laboratory Tests Test 06/18/21 17:10 06/18/21 19:07 06/18/21 23:30 06/19/21 00:45 White Blood Count 10.8 x10^3/uL (4.0-11.0) Red Blood Count 5.30 x10^6/uL (3.50-5.40) Hemoglobin 15.9 g/dL (12.0-15.5) Hematocrit 48.8 % (36.0-47.0) Mean Corpuscular Volume 92 fL (79-100) Mean Corpuscular Hemoglobin 30 pg (25-35) Mean Corpuscular Hemoglobin Concent 33 g/dL (31-37) Red Cell Distribution Width 17.5 % (11.5-14.5) Platelet Count 174 x10^3/uL (140-400) Neutrophils (%) (Auto) 72 % (31-73) Lymphocytes (%) (Auto) 18 % (24-48) Monocytes (%) (Auto) 9 % (0-9) Eosinophils (%) (Auto) 1 % (0-3) Basophils (%) (Auto) 1 % (0-3) Neutrophils # (Auto) 7.7 x10^3uL (1.8-7.7) Lymphocytes # (Auto) 1.9 x10^3/uL (1.0-4.8) Monocytes # (Auto) 0.9 x10^3/uL (0.0-1.1) Eosinophils # (Auto) 0.1 x10^3/uL (0.0-0.7) Basophils # (Auto) 0.1 x10^3/uL (0.0-0.2) Sodium Level 135 mmol/L (136-145) Potassium Level 2.8 mmol/L (3.5-5.1) Chloride Level 97 mmol/L (98-107) Carbon Dioxide Level 31 mmol/L (21-32) Anion Gap 7 (6-14) Blood Urea Nitrogen 18 mg/dL (7-20) Creatinine 0.5 mg/dL (0.6-1.0) Estimated GFR (Cockcroft-Gault) 120.0 BUN/Creatinine Ratio 36 (6-20) Glucose Level 117 mg/dL (70-99) Calcium Level 9.4 mg/dL (8.5-10.1) Total Bilirubin 0.8 mg/dL (0.2-1.0) Aspartate Amino Transf (AST/SGOT) 15 U/L (15-37) Alanine Aminotransferase (ALT/SGPT) 18 U/L (14-59) Alkaline Phosphatase 102 U/L (46-116) Troponin I Quantitative < 0.017 ng/mL (0-0.055) < 0.017 ng/mL (0-0.055) UM-Pwm-O-Type Natriuretic Peptide 756 pg/mL (0-449) Total Protein 7.5 g/dL (6.4-8.2) Albumin 3.4 g/dL (3.4-5.0) Albumin/Globulin Ratio 0.8 (1.0-1.7) Lipase 31 U/L (73-393) Urine Collection Type Unknown Urine Color Yellow Urine Clarity Clear Urine pH 7.0 Urine Specific Belk 1.010 Urine Protein Neg (NEG-TRACE) Urine Glucose (UA) Neg mg/dL (NEG) Urine Ketones (Stick) Neg mg/dL (NEG) Urine Blood Trace (NEG) Urine Nitrite Neg (NEG) Urine Bilirubin Neg (NEG) Urine Urobilinogen Dipstick 1.0 mg/dL (0.2 mg/dL) Urine Leukocyte Esterase Neg (NEG) Urine RBC 1-2 /HPF (0-2) Urine WBC 1-4 /HPF (0-4) Urine Squamous Epithelial Cells Occ /LPF Urine Bacteria 0 /HPF (0-FEW) Coronavirus (COVID-19)(PCR) Not detected (NOT DETECTD) SARS-CoV-2 Antigen (Rapid) Negative (NEGATIVE) Test 06/19/21 03:45 06/19/21 06:27 06/19/21 07:18 06/19/21 11:58 Troponin I Quantitative < 0.017 ng/mL (0-0.055) Sodium Level 137 mmol/L (136-145) Potassium Level 3.5 mmol/L (3.5-5.1) Chloride Level 100 mmol/L (98-107) Carbon Dioxide Level 30 mmol/L (21-32) Anion Gap 7 (6-14) Blood Urea Nitrogen 20 mg/dL (7-20) Creatinine 0.5 mg/dL (0.6-1.0) Estimated GFR (Cockcroft-Gault) 120.0 Glucose Level 95 mg/dL (70-99) Calcium Level 9.6 mg/dL (8.5-10.1) Glucose (Fingerstick) 88 mg/dL (70-99) 80 mg/dL (70-99) Test 06/19/21 16:55 06/19/21 21:01 06/19/21 23:33 06/20/21 07:43 Glucose (Fingerstick) 84 mg/dL (70-99) 98 mg/dL (70-99) 106 mg/dL (70-99) 123 mg/dL (70-99) Test 06/20/21 08:57 White Blood Count 9.1 x10^3/uL (4.0-11.0) Red Blood Count 4.88 x10^6/uL (3.50-5.40) Hemoglobin 14.5 g/dL (12.0-15.5) Hematocrit 44.8 % (36.0-47.0) Mean Corpuscular Volume 92 fL (79-100) Mean Corpuscular Hemoglobin 30 pg (25-35) Mean Corpuscular Hemoglobin Concent 32 g/dL (31-37) Red Cell Distribution Width 17.0 % (11.5-14.5) Platelet Count 173 x10^3/uL (140-400) Neutrophils (%) (Auto) 62 % (31-73) Lymphocytes (%) (Auto) 25 % (24-48) Monocytes (%) (Auto) 10 % (0-9) Eosinophils (%) (Auto) 2 % (0-3) Basophils (%) (Auto) 1 % (0-3) Neutrophils # (Auto) 5.7 x10^3uL (1.8-7.7) Lymphocytes # (Auto) 2.2 x10^3/uL (1.0-4.8) Monocytes # (Auto) 0.9 x10^3/uL (0.0-1.1) Eosinophils # (Auto) 0.2 x10^3/uL (0.0-0.7) Basophils # (Auto) 0.1 x10^3/uL (0.0-0.2) Sodium Level 137 mmol/L (136-145) Potassium Level 3.1 mmol/L (3.5-5.1) Chloride Level 99 mmol/L (98-107) Carbon Dioxide Level 33 mmol/L (21-32) Anion Gap 5 (6-14) Blood Urea Nitrogen 24 mg/dL (7-20) Creatinine 0.5 mg/dL (0.6-1.0) Estimated GFR (Cockcroft-Gault) 120.0 Glucose Level 128 mg/dL (70-99) Calcium Level 9.1 mg/dL (8.5-10.1) ECHOCARDIOGRAM Echocardiogram 02/13/21 - 2D + DOPPLER ECHO Interpretation Summary Normal LV size, wall motion with EF 65%. Normal LV diastolic function Mild RV dilation with normal RV systolic function. Cardiac valves are not well seen, however, limited images demonstrate bioprosthetic aortic valve but not well visualized. No evidence of bioprosthetic aortic valve stenosis or regurgitation Mild TR. Normal CVP & PA systolic pressure 21 mmHg. No pericardial effusion. No prior study available for comparison. ASSESSMENT/PLAN Assessment/Plan 1. Chest pain secondary to left ribs fractures due to fall. AMI ruled out 2. CAD s/p CABG 06/04. clinically stable. Secondary prevention measures. Add ASA, statin therapy. No BB with low end blood pressure 3. s/p bioprosthetic aortic valve replacement 06/04 4. Hypertension; low end 5. Hyperlipidemia 6. Diabetes, II 7. Hypokalemia; check Mg and replace as warranted 8. RBBB; no previous EKG for comparison ROBERT WATTS MD 06/20/21 1734: CARDIAC CONSULT ASSESSMENT/PLAN Assessment/Plan Patient seen and examined I agree with our nurse practitioners assessment and plan. Atypical chest pain secondary to left ribs fractures due to fall. AMI ruled out CAD s/p CABG 06/04. clinically stable. Secondary prevention measures. Add ASA, statin therapy. No BB with low end blood pressure s/p bioprosthetic aortic valve replacement 06/04 Hypertension; low end Hyperlipidemia Diabetes, II Hypokalemia; checking Mg and replace as warranted JO-ANN JOHNSON APRN Jun 20, 2021 10:03 ROBERT WATTS MD Jun 20, 2021 17:34
--- NOTE | 2021-06-20 10:24 | RAD ---
CT HEAD/BRAIN WO History: Reason: FALL X2 WEEKS AGO / Spl. Instructions: / History: . Pain Comparison: None. Technique: Noncontrast CT imaging was performed of the head. Exposure: One or more of the following individualized dose reduction techniques were utilized for thi s examination: 1. Automated exposure control 2. Adjustment of the mA and/or kV according to patient size 3. Use of iterative reconstruction technique. Findings: No intracranial hemorrhage. No mass effect. No hydrocephalus. Mild brain parenchymal volume loss. Mild foci of decreased attenuation within the hemispheric white m atter, most often due to chronic microvascular ischemia. Small cortical calcification within the right frontal lobe (series 2 image 16), likely related to makayla or insult. Imaged orbits are unremarkable. Left posterior ethmoid sinus opacification. No acute calvarial fractu re. Impression: 1. No acute intracranial abnormality. Electronically signed by: Esteban Hahn DO (06/20/2021 10:21 AM) [facility]
[2021-06-20 11:17] VITALS: BP 97/64
[2021-06-20 13:40] VITALS: BP 110/65
--- NOTE | 2021-06-20 14:39 | NUR ---
NURSING NOTE PT HAS BEEN WITHDRAWN TODAY, LETHARGIC. PT C/O PAIN BUT STATES THE PAIN MEDICATION DID GIVE HER SOME RELIEF. PT WAS IN BED THIS AM UPON ASSESSMENT AND MEDICATION ADMINISTRATION AND STATED "JUST LEAVE ME ALONE" WHEN ATTEMPTING ASSESSMENT. PT HAS BEEN ON AND OFF HER OXYGEN TODAY, TAKES IT ON AND OFF BETWEEN CHECKS. PT REFUSED SHOWER THIS AM BUT WAS FEELING BETTER AFTER LUNCH AND DID GET UP TO SHOWER, AND CURRENTLY SITTING IN HER CHAIR. WILL CONTINUE TO MONITOR. ZENAIDA EDMOND.
[2021-06-20] MEDS ORDERED: IOHEXOL 350 MG/ML 100 ML VIAL. IV ONE (15:15)
--- NOTE | 2021-06-20 16:05 | RAD ---
EXAM: CT angiography of the abdomen and pelvis with intravenous contrast. HISTORY: Pain. TECHNIQUE: Computed tomographic images of the abdomen and pelvis were obtained following the administ ration of intravenous contrast according to angiography protocol. Multiplanar reformatting was perfor med and three dimensional maximum intensity projection images were obtained. *One or more of the following individualized dose reduction techniques were utilized for this examina tion: 1. Automated exposure control. 2. Adjustment of the mA and/or kV according to patient size. 3. Use of iterative reconstruction technique. COMPARISON: CT dated 06/18/2021. FINDINGS: Evaluation of the lower thorax demonstrates lingular and bilateral basilar atelectasis or s carring. There is a 6 mm nodule within the medial right lower lobe. There are also 4 mm and 3 mm nodu les within the medial right lower lobe and there are 3 mm and 4 mm nodules within the posterior left lung base. There is bilateral lower lobe bronchial wall thickening and left lower lobe mucous pluggin g or uncleared secretions. There is cardiomegaly and evidence of prior CABG. There is ossification of the aortic valve. No hepatic lesion is seen. There are hepatic granulomas. There is mild biliary ductal dilatation like ly due to reservoir effect status post cholecystectomy. No pancreatic lesion is seen. The spleen is n ormal in size and contains calcified granulomas. No adrenal lesion is seen. There is a 2.3 cm exophyt ic cyst along the upper pole of the left kidney. There is a tiny cortical cyst within the inferior le ft kidney. There is mild renal atrophy. No convincing solid renal lesion is seen. There is no hydrone phrosis. The appendix is likely surgically absent. There is moderate colonic stool. There is distal colonic di verticulosis. There is no diverticulitis. The uterus is absent. The bladder is decompressed. There is suspected pelvic floor relaxation. There are ventral abdominal wall sutures. There is a tiny fat-con taining ventral abdominal wall hernia superior to the umbilicus. The hernia sac measures 3.3 cm in ma ximum dimension and the hernia defect measures 1.9 cm in maximum dimension. No pathologically enlarged lymph node is seen. There is internal fixation of a proximal left femoral fracture. There is bilateral hip osteoarthritis. There is degenerative change involving the spine. Th ere is bone demineralization. There is sacralization of the right L5 transverse process resulting in pseudoarticulation with the underlying sacrum, a normal variant. The angiographic portion of the exam demonstrates calcified atherosclerotic plaque throughout the radha cending thoracic aorta and abdominal aorta. There is a distal abdominal aortic aneurysm measuring 3.4 cm. There is asymmetric mural thrombus within the aneurysm sac. No dissection is seen. There is severe calcified atherosclerotic plaque at the origin of the celiac axis, resulting in near complete occlusion. There is slight poststenotic dilatation of the celiac axis and reconstitution of flow within the celiac axis branch vessels. There is moderate partially calcified atherosclerotic haleigh que at the origin of the superior mesenteric artery with approximately 50 percent stenosis. There is severe calcified atherosclerotic plaque within the origin and proximal aspect of the right r enal artery, with near complete occlusion. There is reconstitution of flow within the remainder of th e right renal artery. There is mild partially calcified atherosclerotic plaque at the origin of the l eft renal artery, with less than 50 percent stenosis. There is a tiny accessory renal artery and ther e are 2 tiny accessory left renal arteries. The inferior mesenteric artery is patent. The iliac arteries are patent. There is calcified atheroscl erotic plaque involving the internal and external iliac arteries, with less than 50 percent stenosis. IMPRESSION: 1. 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 There is slight poststenotic dilatation of the proximal celiac axis and there is re constitution of flow within the celiac axis branch vessels. 2. Moderate atherosclerotic plaque at the origin of the superior mesenteric artery, with approximatel y 50 percent stenosis. 3. Severe atherosclerotic plaque within the origin and proximal aspect of the right renal artery, wit h near complete occlusion. There is a calcific lesion of flow within the remainder of the right renal artery. There is mild vascular plaque at the origin of the left renal artery with less than 50 perce nt stenosis. There are incidental bilateral accessory renal arteries. 4. 3.4 cm distal abdominal aortic aneurysm with asymmetric mural thrombus. No dissection is seen. 5. Bilateral pulmonary nodules measuring up to 6 mm. Follow-up with a dedicated chest CT in 12 months is recommended if there are risk factors for pulmonary malignancy. 6. Bilateral lower lobe bronchial wall thickening and left lower lobe mucous plugging or uncleared se cretions, likely due to sequela of bronchitis. No consolidated pneumonia is seen. 7. Left renal cysts. Follow-up is not routinely performed for simple cysts. 8. Colonic diverticulosis. There is no convincing osteomyelitis. 9. Small fat containing superimposed hernia. Electronically signed by: Lyla Coe MD (06/20/2021 4:03 PM) [id number]
--- NOTE | 2021-06-20 17:59 | NUR ---
NURSING NOTE CONSULT CONSULT NEUROLOGY CALLED TO DR ARMENDARIZ CELL MESSAGE LEFT. ZENAIDA EDMOND.
[2021-06-20 20:00] VITALS: BP 91/59
[2021-06-20] MEDS ORDERED: ATORVASTATIN CALCIUM 20 MG TABLET PO SCH (21:00)
[2021-06-20 23:54] VITALS: BP 101/70
--- NOTE | 2021-06-21 00:29 | PN ---
DATE: 06/20/2021 SUBJECTIVE: The patient is sitting in her chair, continued to complain of abdominal pain that is mostly in the left upper quadrant. She also complained of chest pain that is worse on taking a deep breath; however, she denied any nausea or vomiting. She does not have any bowel movement or passed flatus, but does not know when was the last time she had one and she seemed to be somewhat more confused and her son actually tested to that. Apparently, her fall was about 2 weeks ago when she was attempting to sit in a chair and missed and fell on her left side and hit her chest and also her head. CT scan of the head was unremarkable. X-ray of the chest showed that she has minimally displaced lateral left third and fourth rib fracture; however, CT scan of the abdomen with IV contrast was mostly unrevealing; however, the patient's pain is worse today and the fact that she required IV fentanyl. PHYSICAL EXAMINATION: GENERAL: When I saw her this afternoon, she was clearly frustrated, pale, but no jaundice, cyanosis. No lymphadenopathy, no thyromegaly, no jugular venous distention. No limb edema. VITAL SIGNS: Her heart rate was 66, blood pressure is 110/65, temperature was 98.3, respiratory rate was 16 and oxygen saturation was 91% on 3 liters of oxygen. HEAD, EYES, EARS, NOSE, AND THROAT: Normocephalic, atraumatic. NECK: Supple. HEART: Normal first and second heart sounds. No gallop, rub or murmur. CHEST: Showed good air entry and chest expansion on the right side with vesicular breath sounds. Reduced chest expansion, reduced air entry on the left side. ABDOMEN: Distended, but tender mostly in the left upper quadrant and epigastric area; however, there is no guarding or rigidity. No organomegaly. All hernial orifice intact. Bowel sounds normal. NEUROLOGIC: She is confused, but without any obvious lateralizing sign. LABORATORY DATA: Her lab work this morning showed a white cell count 9000, hemoglobin 14.5, hematocrit 45, MCV 92 and platelet count of 173,000. Her chemistry showed a serum sodium of 137, potassium 3.1, chloride 99, bicarbonate 33, anion gap of 5, BUN 24, creatinine 0.5. Estimated GFR was 120 mL per minute. Her glucose of 128 and calcium was 9.1. Urinalysis was essentially unremarkable and her coronavirus by PCR was negative. PLAN: My plan is to arrange for a CT angio of the abdomen and pelvis. I am concerned about the possibility of bowel ischemia. I will also arrange for her to repeat her labs and particularly add LDH and lactic acid and replenish her potassium. CK DR: Kym TID: [id number]
[2021-06-21 05:53] LABS: BASO # 0.1 x10^3/uL (0.0-0.2); BASO % 1 % (0-3); EOS # 0.3 x10^3/uL (0.0-0.7); EOS % 3 % (0-3); HEMATOCRIT 42.4 % (36.0-47.0); HEMOGLOBIN 13.8 g/dL (12.0-15.5); LYMPH # 2.1 x10^3/uL (1.0-4.8); LYMPH % 26 % (24-48); MEAN CORPUSCULAR HEMOGLOBIN 30 pg (25-35); MEAN CORPUSCULAR HGB CONC 33 g/dL (31-37); MEAN CORPUSCULAR VOLUME 93 fL (79-100); MONO # 0.8 x10^3/uL (0.0-1.1); MONO % 10 % (0-9); NEUT # 4.9 x10^3uL (1.8-7.7); NEUT % 60 % (31-73); PLATELET COUNT 159 x10^3/uL (140-400); RED BLOOD COUNT 4.55 x10^6/uL (3.50-5.40); RED CELL DISTRIBUTION WIDTH 17.1 % (11.5-14.5); WHITE BLOOD COUNT 8.2 x10^3/uL (4.0-11.0)
[2021-06-21 06:11] LABS: ALBUMIN 3.2 g/dL (3.4-5.0); ALBUMIN/GLOBULIN RATIO 0.9 (1.0-1.7); CALCIUM 9.2 mg/dL (8.5-10.1); CREATININE 0.7 mg/dL (0.6-1.0); GFR 81.4; POTASSIUM 3.2 mmol/L (3.5-5.1); TOTAL BILIRUBIN 0.5 mg/dL (0.2-1.0); TOTAL PROTEIN 6.9 g/dL (6.4-8.2)
[2021-06-21 06:16] VITALS: BP 104/71
[2021-06-21] MEDS: FUROSEMIDE 40 MG TABLET PO SCH ×2 (07:51→13:01)
[2021-06-21] MEDS: PANTOPRAZOLE 40 MG TABLET. PO SCH (07:51)
[2021-06-21] MEDS ORDERED: ASPIRIN ENTERIC COATED 81 MG TABLET.DR. PO SCH (08:00)
--- NOTE | 2021-06-21 08:23 | PDOC ---
CARDIO Progress Notes Date & Time Date of Service DATE: 06/21/21 TIME: 08:22 Time of Evaluation 08:22 Subjective Notes c/o pain in left chest with deep breathing Vitals Vitals Vital Signs Date Time Temp Pulse Resp B/P (MAP) Pulse Ox O2 Delivery O2 Flow Rate FiO2 06/21/21 06:16 97.8 78 18 104/71 (82) 95 Nasal Cannula 2.0 Weight Weight [ ] Input and Output I.O. Intake and Output 06/21/21 07:00 Intake Total 1080 ml Balance 1080 ml Intake Oral 1080 ml # Voids 3 Laboratory Labs Laboratory Tests Test 06/19/21 11:58 06/19/21 16:55 06/19/21 21:01 06/19/21 23:33 Glucose (Fingerstick) 80 mg/dL (70-99) 84 mg/dL (70-99) 98 mg/dL (70-99) 106 mg/dL (70-99) Test 06/20/21 07:43 06/20/21 08:57 06/20/21 11:58 06/20/21 16:43 Glucose (Fingerstick) 123 mg/dL (70-99) 161 mg/dL (70-99) 75 mg/dL (70-99) White Blood Count 9.1 x10^3/uL (4.0-11.0) Red Blood Count 4.88 x10^6/uL (3.50-5.40) Hemoglobin 14.5 g/dL (12.0-15.5) Hematocrit 44.8 % (36.0-47.0) Mean Corpuscular Volume 92 fL (79-100) Mean Corpuscular Hemoglobin 30 pg (25-35) Mean Corpuscular Hemoglobin Concent 32 g/dL (31-37) Red Cell Distribution Width 17.0 % (11.5-14.5) Platelet Count 173 x10^3/uL (140-400) Neutrophils (%) (Auto) 62 % (31-73) Lymphocytes (%) (Auto) 25 % (24-48) Monocytes (%) (Auto) 10 % (0-9) Eosinophils (%) (Auto) 2 % (0-3) Basophils (%) (Auto) 1 % (0-3) Neutrophils # (Auto) 5.7 x10^3uL (1.8-7.7) Lymphocytes # (Auto) 2.2 x10^3/uL (1.0-4.8) Monocytes # (Auto) 0.9 x10^3/uL (0.0-1.1) Eosinophils # (Auto) 0.2 x10^3/uL (0.0-0.7) Basophils # (Auto) 0.1 x10^3/uL (0.0-0.2) Sodium Level 137 mmol/L (136-145) Potassium Level 3.1 mmol/L (3.5-5.1) Chloride Level 99 mmol/L (98-107) Carbon Dioxide Level 33 mmol/L (21-32) Anion Gap 5 (6-14) Blood Urea Nitrogen 24 mg/dL (7-20) Creatinine 0.5 mg/dL (0.6-1.0) Estimated GFR (Cockcroft-Gault) 120.0 Glucose Level 128 mg/dL (70-99) Calcium Level 9.1 mg/dL (8.5-10.1) Magnesium Level 1.8 mg/dL (1.8-2.4) Lactate Dehydrogenase 168 U/L (81-234) Test 06/20/21 16:45 06/21/21 05:42 Glucose (Fingerstick) 110 mg/dL (70-99) White Blood Count 8.2 x10^3/uL (4.0-11.0) Red Blood Count 4.55 x10^6/uL (3.50-5.40) Hemoglobin 13.8 g/dL (12.0-15.5) Hematocrit 42.4 % (36.0-47.0) Mean Corpuscular Volume 93 fL (79-100) Mean Corpuscular Hemoglobin 30 pg (25-35) Mean Corpuscular Hemoglobin Concent 33 g/dL (31-37) Red Cell Distribution Width 17.1 % (11.5-14.5) Platelet Count 159 x10^3/uL (140-400) Neutrophils (%) (Auto) 60 % (31-73) Lymphocytes (%) (Auto) 26 % (24-48) Monocytes (%) (Auto) 10 % (0-9) Eosinophils (%) (Auto) 3 % (0-3) Basophils (%) (Auto) 1 % (0-3) Neutrophils # (Auto) 4.9 x10^3uL (1.8-7.7) Lymphocytes # (Auto) 2.1 x10^3/uL (1.0-4.8) Monocytes # (Auto) 0.8 x10^3/uL (0.0-1.1) Eosinophils # (Auto) 0.3 x10^3/uL (0.0-0.7) Basophils # (Auto) 0.1 x10^3/uL (0.0-0.2) Sodium Level 140 mmol/L (136-145) Potassium Level 3.2 mmol/L (3.5-5.1) Chloride Level 99 mmol/L (98-107) Carbon Dioxide Level 35 mmol/L (21-32) Anion Gap 6 (6-14) Blood Urea Nitrogen 20 mg/dL (7-20) Creatinine 0.7 mg/dL (0.6-1.0) Estimated GFR (Cockcroft-Gault) 81.4 BUN/Creatinine Ratio 29 (6-20) Glucose Level 119 mg/dL (70-99) Calcium Level 9.2 mg/dL (8.5-10.1) Total Bilirubin 0.5 mg/dL (0.2-1.0) Aspartate Amino Transf (AST/SGOT) 22 U/L (15-37) Alanine Aminotransferase (ALT/SGPT) 21 U/L (14-59) Alkaline Phosphatase 90 U/L (46-116) Total Protein 6.9 g/dL (6.4-8.2) Albumin 3.2 g/dL (3.4-5.0) Albumin/Globulin Ratio 0.9 (1.0-1.7) Lipase 35 U/L (73-393) Physical Exams HEENT: Neck Supple W Full Motion Chest: Symmetric Lungs: Clear to Auscultation, Other (left chest tenderness upon palpation ) Heart: RRR Extremities: No Edema Neurology: alert, follow commands, other (forgetful ) Assessment Assessment 1. Chest pain secondary to left ribs fractures due to fall. AMI ruled out 2. CAD s/p CABG 06/04. clinically stable. Secondary prevention measures. Add ASA, statin therapy. No BB with low end blood pressure 3. s/p bioprosthetic aortic valve replacement 06/04 4. Hypertension; low end 5. Hyperlipidemia 6. Diabetes, II 7. Hypokalemia; check Mg and replace as warranted 8. RBBB; no previous EKG for comparison 9. PAD; CTA noted. would recommend outpatient vascular evaluation 10. Right renal artery stenosis. No left ELIA identified JO-ANN JOHNSON APRN Jun 21, 2021 08:23
[2021-06-21 10:40] VITALS: BP 128/77
[2021-06-21] MEDS ORDERED: PANT40TA3 PO (15:19)
[2021-06-21] MEDS ORDERED: HYDR-2155 PO (15:20)
--- NOTE | 2021-06-21 15:22 | DISCH ---
HOME HEALTH DISCHARGE/MEDS DISCHARGE INFORMATION: Discharge Date: Jun 21, 2021 Final Diagnosis: Problems Medical Problems: (1) Left rib fracture Status: Acute Condition on Discharge: Stable CODE STATUS: Code Status: Full HOME HEALTH: Face to Face: I certify this patient is under my care and that I, or a nurse practitioner or physician's certified nursing assistant instructor working with me, had a face to face encounter that meets the physician face to face encounter requirements with this patient on 06/21/2021 Medical Condition(s): Other [facility] For: Medication Management Physical Therapy For: Evalulation/Treatment Occupational Therapy For: Evaluation/Treatment POST DISCHARGE ORDERS: Activity Instructions for Disc: Activity as tolerated DIET AFTER DISCHARGE: Cardiac CERTIFICATION STATEMENT: Certification Statement: Based on the above finding, I certify that this patient is confined to the home and needs intermittent residential care, physical therapy and/or speech therapy, or continues to need occupational therapy.~ This patient is under my care, and I have initiated the establishment of the plan of care.~ This patient will be followed by myself or a community physician who will periodically review the plan of care. DISCHARGE MEDICATIONS: Home Meds Active Scripts Hydrocodone Bit/Acetaminophen (HYDROCODONE-APAP 5-325 ) 1 Each Tablet, 1 TAB PO PRN Q6HRS PRN for PAIN for 15 Days, #60 TAB 0 Refills Prov:BREANN EMERSON MD 06/21/21 Pantoprazole Sodium (PROTONIX) 40 Mg Tablet.dr, 1 TAB PO DAILY for peptic ulcer for 30 Days, #30 TAB 5 Refills Prov:BREANN EMERSON MD 06/21/21 Reported Medications Ferrous Sulfate (FERROUS SULFATE) 325 Mg Tablet, 325 MG PO BID for ., TAB 06/19/21 Furosemide (FUROSEMIDE) 40 Mg Tablet, 40 MG PO BID for ., TAB 06/19/21 Amitriptyline Hcl (AMITRIPTYLINE HCL) 25 Mg Tablet, 50 MG PO HS for ., TAB 06/19/21 Omeprazole (OMEPRAZOLE) 20 Mg Capsule.dr, 20 MG PO BID for ., CAP 06/19/21 Discontinued Scripts Hydrocodone/Ibuprofen (HYDROCODONE-IBUPROFEN 7.5-200 ) 1 Each Tablet, 1 TAB PO PRN Q6HRS PRN for PAIN, #30 TAB 0 Refills Prov:SADIA HENDERSON MD 01/03/21 BREANN EMERSON MD Jun 21, 2021 15:22
[2021-06-21] MEDS ORDERED: POTA-121 PO (15:28)
--- NOTE | 2021-06-21 15:58 | DS ---
DATE OF DISCHARGE: 06/21/2021 HOSPITAL COURSE: The patient is sitting comfortably in a chair, working with physical therapy in no apparent distress. She denied any abdominal pain. She is tolerating her diet without any problem and I did a CT angio of the abdomen and pelvis, which showed that she has severe atherosclerotic plaque at the origin of the celiac axis with associated complete to near complete occlusion. There is a slight post-stenotic dilatation of the proximal celiac axis and there is constitution of flow within the celiac axis branch vessels. Does have also moderate atherosclerotic plaque at the origin of the superior mesenteric artery with approximately 50% stenosis and severe atherosclerotic plaque within the origin and proximal aspect of the right renal artery with near complete occlusion. There is a calcific lesion of the flow within the remainder of the right renal artery. There is a mild vascular plaque at the origin of the left renal artery with less than 50% stenosis. Has bilateral pulmonary nodules measuring up to 6 mm, bilateral lower lobe bronchial wall thickening and left lower lobe mucus plugging. Colonic diverticulosis without any evidence of diverticulitis. I did speak with Dr. Neri and he did not think that the celiac axis needs to be in stenting. As the patient has been pain-free and has been tolerating her diet, a decision was made to discharge her home with home health. PHYSICAL EXAMINATION: GENERAL: When I saw her this afternoon, she looked pale, but no jaundice, cyanosis or thyromegaly. No jugular venous distention. No limb edema. VITAL SIGNS: Her heart rate was 92, blood pressure was 128/77, temperature 97.9, respiratory rate 20, and oxygen saturation was 94% on 3 liters of oxygen. HEAD, EYES, EARS, NOSE, AND THROAT: Normocephalic, atraumatic. NECK: Supple. HEART: Showed normal first and second heart sounds. No gallop, rub or murmur. CHEST: Clear to auscultation. No crepitation or rhonchi. ABDOMEN: Distended, soft, nontender. NEUROLOGIC: She is grossly intact. Her intake over the last 24 hours was 1080, no output was recorded. LABORATORY DATA: Her lab work this morning showed a white cell count of 8200, hemoglobin 14, hematocrit 42, MCV 93, and platelet count of 159,000. Her chemistry showed a serum sodium 140, potassium 3.2, chloride 99, bicarbonate 35, anion gap of 6, BUN 20, creatinine 0.7. Estimated GFR was 81 mL per minute. Her glucose was 119, calcium was 9.2. Total bilirubin, AST, ALT, alkaline phosphatase were normal. Total protein 6.9, albumin was 3.2. DISCHARGE MEDICATIONS: The patient was discharged home to continue on hydrocodone/APAP 5/325 one tablet every 6 hours, Protonix 40 mg daily. At discharge, she should continue on amitriptyline 50 mg at bedtime, ferrous sulfate 325 mg twice a day, furosemide 40 mg twice a day, omeprazole 20 mg b.i.d., and potassium chloride 20 mEq twice a day. FINAL DISCHARGE DIAGNOSES: 1. Chest pain, likely due to left-sided third and fourth rib fracture, abdominal pain. No obvious explanation. The patient is now pain-free. 2. Coronary artery disease status post CABG, clinically stable. 3. Aortic stenosis, status post bioprosthetic aortic valve replacement. 4. Hypertension. 5. Hyperlipidemia. 6. Type 2 diabetes mellitus. 7. Hypokalemia, resolved. 8. Right bundle-branch block. 9. Peripheral arterial disease, right renal artery stenosis. LYNDA DR: Kym TID: [id number]
[2021-06-21] MEDS ORDERED: FURO-68 PO (16:09)
--- NOTE | 2021-06-21 16:25 | NUR ---
PT DISCHARGED HOME WITH SON. PT ABLE TO GET IN TRUCK WITH MINIMAL ASSISTANCE. PT DISCHARGED WITH HOME HEALTH. PT DISCHARGE INSTRUCTIONS WITH HER ALONG HER PERSONAL BELONGINGS. PT COMPLAINED OF NO PAIN FOR THIS NURSE TODAY, AND PT ABLE TO ANSWER ALL NEURO QUESTIONS FOR THIS RN. PT SAW PHYSICAL THERAPY AND OCCUPATIONAL THERAPY THIS AFTERNOON AND WAS ABLE TO WALK FROM HER ROOM TO THE GYM AND DO EXERCISES W/O C/O OF PAIN.
--- NOTE | 2021-06-22 01:28 | CONS ---
NEUROLOGY CONSULTATION REFERRING PHYSICIAN: Dr. Ramirez. REASON FOR CONSULTATION: Acute mental status changes. HISTORY OF PRESENT ILLNESS: This is a 76-year-old right-handed female, who was admitted through Emergency Room on 06/18/2021 on account of chest pain and abdominal pain. Apparently, the patient has been falling frequently and as a result of falls, she was found having 2 fractures of the left 3rd and 4th ribs. The chest pain usually aggravated by taking deep breaths. The patient did not have any head injuries or loss of consciousness, bowel or bladder incontinence. She denies any convulsions. The patient was hypoxic. Therefore, she was given oxygen supplement since admission. Currently, she denies headaches, visual disturbances, nausea, vomiting, dysarthria or dysphagia. Initial nonenhanced head CT scan revealed no acute intracranial process. PAST MEDICAL HISTORY: Significant for COPD, depressions, anxiety, gastroesophageal reflux disease, hyperlipidemia, and coronary artery disease. PAST SURGICAL HISTORY: Positive for coronary artery bypass graft, left hip fracture, left ankle fracture, hysterectomy and appendectomy. FAMILY HISTORY: Noncontributory. SOCIAL HISTORY: The patient is a smoker. She denies alcohol drinking or illicit drug use. CURRENT MEDICATIONS: Aspirin 81 mg daily, Lipitor 40 mg p.o. nightly, fentanyl 50 mg q. 3 hours p.r.n. for pain, furosemide 40 mg b.i.d. and potassium 40 mg daily. ALLERGIES: HYDROMORPHONE, LEVOFLOXACIN AND MORPHINE. REVIEW OF SYSTEMS: A 10-point review of system was performed as mentioned above in history of present illness, otherwise unremarkable. PHYSICAL EXAMINATION: GENERAL: A well-developed, well-nourished female in no acute distress. She weighs 73.5 kilos. VITAL SIGNS: Blood pressure 104/71, respiratory rate 18, pulse is 78, temperature 97.8, oxygen saturation 95% on 2 liters by nasal cannula. HEENT: Normocephalic, atraumatic, otherwise unremarkable. NECK: Supple, negative for carotid bruit, lymphadenopathy or thyromegaly. LUNGS: Clear to A and P. CARDIAC: Regular rate and rhythm, normal S1, S2. There is no S3, S4 or murmur. ABDOMEN: Soft. Bowel sounds positive. EXTREMITIES: Positive for trace edema. NEUROLOGIC: Mental status: The patient is alert and oriented x2. The speech is fluent. There is no language dysfunction. Memory, judgment and abstracting thinking are fair. The patient denies hallucination or delusion. The pupils are equal and reactive to light and accommodation. Hearing is intact bilaterally. The palate is elevated symmetrically. Sternocleidomastoid muscles are powerful bilaterally. The patient shrugs her shoulders symmetrically, protrudes her tongue in the midline without fasciculation or atrophy. Motor Examination: No focal muscle bulk wasting. The tone is normal. The strength is 4/5 throughout. Sensory examination revealed diminished pinprick and light touch senses in patchy distributions in upper and lower extremities. Deep tendon reflexes were symmetric and hypoactive with absent Achilles responses. Gait not tested. LABORATORY DATA: CBC revealed blood cells of 8.2 thousand, hemoglobin 13.8, hematocrit 42.4, platelet count 159,000. Chemistry revealed sodium of 140, potassium 3.2, chloride 99, CO2 of 35, BUN 20, creatinine 0.7, glucose 119, and calcium 9.2. Urinalysis is negative for urinary tract infections. Serology negative for rapid and PCR COVID-2. DIAGNOSTIC DATA: Nonenhanced head CT scan revealed no acute intracranial process, but showed chronic small vessel ischemic changes. Abdominal CT scan revealed severe atherosclerotic plaque at the origin of the celiac axis and duration of a superior mesenteric artery, bilateral pulmonary nodules measuring up to 6 mm, left renal cysts. A chest x-ray revealed cardiomegaly with interstitial thickening and a minimally displaced lateral left 3rd and 4th rib fracture. IMPRESSION: 1. Intermittent encephalopathy, probably secondary to fall and underlying dementia. 2. Coronary artery disease status post coronary artery bypass graft, hyperlipidemia and history of restless leg syndrome, depression and anxiety. RECOMMENDATION: 1. Continue with current medical care. 2. Physical therapy evaluation. SLOANE DR: Deborah TID: [id number]
== END 2021-06-21 16:28 | disposition home health service (06) | DRG 184 ==
LOC: ER 16:21 → 1 SOUTH 22:32
PROVIDERS: ADMIT Hospitalist; ATTEND Hospitalist
DX: S22.42XA Multiple fractures of ribs, left side, initial encounter for closed fracture (principal); G93.40 Encephalopathy, unspecified; E87.6 Hypokalemia; D63.8 Anemia in other chronic diseases classified elsewhere; E11.51 Type 2 diabetes mellitus with diabetic peripheral angiopathy without gangrene; E78.00 Pure hypercholesterolemia, unspecified; E78.5 Hyperlipidemia, unspecified; F03.90 Unspecified dementia, unspecified severity, without behavioral disturbance, psychotic disturbance, mood disturbance, and anxiety; F17.200 Nicotine dependence, unspecified, uncomplicated; F41.8 Other specified anxiety disorders; G25.81 Restless legs syndrome; I11.0 Hypertensive heart disease with heart failure; I25.10 Atherosclerotic heart disease of native coronary artery without angina pectoris; I35.0 Nonrheumatic aortic (valve) stenosis; I45.10 Unspecified right bundle-branch block; I50.9 Heart failure, unspecified; I70.1 Atherosclerosis of renal artery; J44.9 Chronic obstructive pulmonary disease, unspecified; K57.30 Diverticulosis of large intestine without perforation or abscess without bleeding; M81.0 Age-related osteoporosis without current pathological fracture; R09.02 Hypoxemia; R29.6 Repeated falls; Z87.11 Personal history of peptic ulcer disease; Z90.710 Acquired absence of both cervix and uterus; Z95.1 Presence of aortocoronary bypass graft; Z95.3 Presence of xenogenic heart valve; F41.9 Anxiety disorder, unspecified; K21.9 Gastro-esophageal reflux disease without esophagitis; W18.39XA Other fall on same level, initial encounter; Y93.89 Activity, other specified; Y92.89 Other specified places as the place of occurrence of the external cause; Y99.8 Other external cause status
CPT/HCPCS: 36415; 70450; 71045; 74174; 74177; 80048; 80053; 80061; 81001; 82947; 83615; 83690; 83735; 83880; 84484; 85025; 87426; 93005; 99406; J3010; Q9967; U0003; 97110; 97530; 97535; 99285-25